=== PATIENT | female | born 1995 | race Caucasian/White ===

== ENCOUNTER → 2018-02-16 | Outpatient (CLI) | payer BC ==
[2018-02-16 15:19] LABS: POTASSIUM SERUM 4.5 MEQ/L (3.5-5.1)
== END ==
LOC: M WUC 12:26
DX: L70.0 Acne vulgaris (principal)
CPT/HCPCS: 84132

== ENCOUNTER 2020-05-30 13:22 | Emergency (ER) | payer BC ==
[~2020-05-30] VITALS: Ht 167.6 cm; Wt 74.2 kg
[2020-05-30] MEDS ORDERED: ESTA0.25 (13:28)
[2020-05-30 14:35] LABS: BASO % 0.3 % (0.0-1.0); EOS % 0.1 % (0.0-3.0); HEMATOCRIT 41.3 % (36.0-47.0); HEMOGLOBIN 12.6 g/dl (12.0-15.5); LYMPH # 1.4 10^3/uL (1.5-5.0); LYMPH % 13.3 % (24.0-44.0); MEAN CORPUSCULAR HEMOGLOBIN 23.5 pg (27.0-33.0); MEAN CORPUSCULAR HGB CONC 30.5 g/dl (32.0-36.5); MEAN CORPUSCULAR VOLUME 77.1 fl (80.0-96.0); MONO # 0.7 10^3/uL (0.0-0.8); MONO % 6.6 % (0.0-5.0); NEUTROPHILS # 8.5 10^3/uL (1.5-8.5); NEUTROPHILS % 79.5 % (36.0-66.0); PLATELET COUNT, AUTOMATED 319 10^3/uL (150-450); RED BLOOD COUNT 5.36 10^6/uL (4.00-5.40); WHITE BLOOD COUNT 10.6 10^3/uL (4.0-10.0)
[2020-05-30 14:58] LABS: ALBUMIN 3.9 GM/DL (3.2-5.2); BILIRUBIN,DIRECT 0.2 MG/DL (0.0-0.2); BILIRUBIN,TOTAL 0.6 MG/DL (0.2-1.0); TOTAL PROTEIN 8.6 GM/DL (6.4-8.2)
[2020-05-30] MEDS ORDERED: NS 1,000 ML IV ONE (15:00)
[2020-05-30] MEDS ORDERED: ONDANSETRON 4MG/2ML VIAL IV ONE (15:00)
--- NOTE | 2020-05-30 15:55 | REPVR ---
PROCEDURE INFORMATION: Exam: CT Head Without Contrast Exam date and time: 05/30/2020 3:38 PM Age: 24 years old Clinical indication: Pain; Headache; Migraine. TECHNIQUE: Imaging protocol: Computed tomography of the head without contrast. Radiation optimization: All CT scans at this facility use at least one of these dose optimization techniques: automated exposure control; mA and/or kV adjustment per patient size (includes targeted exams where dose is matched to clinical indication); or iterative reconstruction. COMPARISON: No relevant prior studies available. FINDINGS: Brain: Normal. No hemorrhage. Unremarkable white matter. No mass effect. Cerebral ventricles: No ventriculomegaly. Bones/joints: Unremarkable. No acute fracture. Paranasal sinuses: Visualized sinuses are unremarkable. No fluid levels. Mastoid air cells: Visualized mastoid air cells are well aerated. Soft tissues: Unremarkable. IMPRESSION: No acute intracranial abnormality. Electronically signed by: Curt Dominguez On 05/30/2020 15:55:14 PM
[2020-05-30 16:15] VITALS: BP 128/78
== END 2020-05-30 16:26 | disposition home or self-care (01) ==
LOC: M ED 13:22
DX: R19.7 Diarrhea, unspecified (principal); R51 Headache; R11.2 Nausea with vomiting, unspecified; Z82.49 Family history of ischemic heart disease and other diseases of the circulatory system
CPT/HCPCS: 70450; 80047; 80076; 81001; 83690; 84702; 85025; 96361; 96374; 99284; J2405

== ENCOUNTER 2021-05-27 20:33 | Emergency (ER) | payer BC, OTHER ==
[~2021-05-27] VITALS: Ht 167.6 cm; Wt 73.4 kg
[~2021-05-27 20:33] MED LIST: ESTA0.25
[2021-05-27 21:14] LABS: BASO % 0.3 % (0.0-1.0); EOS % 0.5 % (0.0-3.0); HEMATOCRIT 40.7 % (36.0-47.0); HEMOGLOBIN 12.3 g/dl (12.0-15.5); LYMPH # 1.9 10^3/uL (1.5-5.0); MEAN CORPUSCULAR HEMOGLOBIN 23.7 pg (27.0-33.0); MEAN CORPUSCULAR HGB CONC 30.2 g/dl (32.0-36.5); MEAN CORPUSCULAR VOLUME 78.3 fl (80.0-96.0); MONO # 0.5 10^3/uL (0.0-0.8); MONO % 5.8 % (2.0-8.0); NEUTROPHILS # 6.2 10^3/uL (1.5-8.5); NEUTROPHILS % 71.1 % (36.0-66.0); PLATELET COUNT, AUTOMATED 291 10^3/uL (150-450); WHITE BLOOD COUNT 8.7 10^3/uL (4.0-10.0)
[2021-05-27 21:43] LABS: HCG, SERUM QUALITATIVE NEGATIVE (NEGATIVE)
[2021-05-27 21:46] LABS: ALBUMIN 3.7 GM/DL (3.2-5.2); ALT/SGPT 26 U/L (12-78); BILIRUBIN,DIRECT 0.1 MG/DL (0.0-0.2); BILIRUBIN,TOTAL 0.5 MG/DL (0.2-1.0); BLOOD UREA NITROGEN 7 MG/DL (7-18); CARBON DIOXIDE LEVEL 28 MEQ/L (21-32); CHLORIDE LEVEL 103 MEQ/L (98-107); CREATININE FOR GFR 0.65 MG/DL (0.55-1.30); GLOMERULAR FILTRATION RATE > 60.0 (>60); GLUCOSE, FASTING 75 MG/DL (70-100); LIPASE 71 U/L (73-393); POTASSIUM SERUM 4.2 MEQ/L (3.5-5.1); SODIUM LEVEL 137 MEQ/L (136-145); TOTAL PROTEIN 8.2 GM/DL (6.4-8.2)
[2021-05-27 21:49] LABS: RSV AMPLIFICATION NEGATIVE (NEGATIVE)
[2021-05-27] MEDS ORDERED: ONDANSETRON 4MG/2ML VIAL IV ONE (21:55)
[2021-05-27] MEDS ORDERED: NS 1,000 ML IV ONE (21:55)
[2021-05-27] MEDS ORDERED: KETOROLAC 30 MG/ML 1ML VIAL IV ONE (21:55)
[2021-05-27] MEDS ORDERED: ONDANSETRON 4 MG ORAL DISINTEGRATING TAB PO ONE (23:55)
[2021-05-27] MEDS ORDERED: ONDA4TAB6 PO (23:58)
[2021-05-28 00:27] VITALS: BP 123/65
[2021-05-28] MEDS ORDERED: physical therapy AU (18:25)
[2021-05-28] MEDS ORDERED: ONDA4TAB6 PO (18:25)
== END 2021-05-28 00:28 | disposition home or self-care (01) ==
LOC: M ED 20:33
DX: R11.2 Nausea with vomiting, unspecified (principal); E86.0 Dehydration; Z79.3 Long term (current) use of hormonal contraceptives
CPT/HCPCS: 80048; 80076; 81001; 83690; 84703; 85025; 87631; 96361; 96374; 96375; 99284; J1885; J2405; Q0162

== ENCOUNTER 2021-05-28 12:42 | Emergency (ER) | payer OTHER ==
[~2021-05-28] VITALS: Ht 167.6 cm; Wt 73.0 kg
[~2021-05-28 12:42] MED LIST changes: +ONDA4TAB6 PO
[2021-05-28 12:43] VITALS: BP 116/78
[2021-05-28] MEDS ORDERED: physical therapy AU (18:25)
[2021-05-28] MEDS ORDERED: ONDA4TAB6 PO (18:25)
== END 2021-05-28 19:25 | disposition home or self-care (01) ==
LOC: M ED 12:42
DX: H81.10 Benign paroxysmal vertigo, unspecified ear (principal); R11.2 Nausea with vomiting, unspecified; Z79.3 Long term (current) use of hormonal contraceptives

== ENCOUNTER → 2023-07-05 | Outpatient (CLI) | payer OTHER ==
[~2023-07-05] MED LIST changes: +physical therapy AU
== END ==
LOC: M WUC 14:21
PROVIDERS: ATTEND Student in an Organized Health Care Education/Training Program
DX: M79.641 Pain in right hand (principal)

== ENCOUNTER → 2023-09-08 | Outpatient (CLI) | payer OTHER, BC ==
[2023-09-08 17:15] LABS: BASO % 0.3 % (0.0-1.0); EOS # 0.1 10^3/uL (0.0-0.5); EOS % 0.8 % (0.0-3.0); HEMOGLOBIN 12.2 g/dl (12.0-15.5); LYMPH # 2.3 10^3/uL (1.5-5.0); LYMPH % 29.8 % (24.0-44.0); MEAN CORPUSCULAR HEMOGLOBIN 25.3 pg (27.0-33.0); MEAN CORPUSCULAR HGB CONC 30.5 g/dl (32.0-36.5); MONO # 0.6 10^3/uL (0.0-0.8); MONO % 7.1 % (2.0-8.0); NEUTROPHILS # 4.7 10^3/uL (1.5-8.5); NEUTROPHILS % 61.5 % (36.0-66.0); PLATELET COUNT, AUTOMATED 289 10^3/uL (150-450); RED BLOOD COUNT 4.82 10^6/uL (4.00-5.40); WHITE BLOOD COUNT 7.7 10^3/uL (4.0-10.0)
[2023-09-08 19:22] LABS: FREE T4 1.55 NG/DL (0.89-1.76); THYROID STIMULATING HORMONE 1.187 uIU/ML (0.55-4.78); TOTAL IRON BINDING CAPACITY 493 UG/DL (250-425)
[2023-09-08 19:24] LABS: ALBUMIN 3.5 G/DL (3.2-5.2); ALKALINE PHOSPHATASE 82 U/L (46-116); ALT/SGPT 11 U/L (7.0-40); AST/SGOT 14 U/L (<34); BILIRUBIN,TOTAL 0.3 MG/DL (0.3-1.2); BLOOD UREA NITROGEN 9 MG/DL (9-23); CALCIUM LEVEL 8.6 MG/DL (8.5-10.1); CARBON DIOXIDE LEVEL 27 MMOL/L (20-31); CHLORIDE LEVEL 103 MMOL/L (98-107); CHOLESTEROL LEVEL 231 MG/DL (<200); CHOLESTEROL RISK RATIO 3.12 (<5); FERRITIN 2.1 NG/ML (7.3-270.7); GLOMERULAR FILTRATION RATE > 60.0 (>60); GLUCOSE, FASTING 82 MG/DL (60-100); IRON (FE) 52 UG/DL (50-170); LDL CHOLESTEROL 134.8 MG/DL (<100); PERCENT SATURATION 10.5 % (13.2-45.0); POTASSIUM SERUM 4.1 MMOL/L (3.5-5.1); SODIUM LEVEL 137 MMOL/L (136-145); TOTAL PROTEIN 7.4 G/DL (5.7-8.2); TRIGLYCERIDES LEVEL 111 MG/DL (<150)
== END ==
LOC: M WUC 11:48
PROVIDERS: ATTEND Physician Assistant
DX: R53.83 Other fatigue (principal); R44.8 Other symptoms and signs involving general sensations and perceptions; R23.3 Spontaneous ecchymoses

== ENCOUNTER → 2023-11-23 | Outpatient (CLI) | payer BC, OTHER ==
[2023-11-23 16:12] LABS: HEMOGLOBIN A1c 4.9 % (4.0-6.0)
[2023-11-23 16:29] LABS: PROLACTIN 7.69 NG/ML; THYROID STIMULATING HORMONE 1.041 uIU/ML (0.55-4.78)
[2023-11-23 16:30] LABS: FREE T4 1.18 NG/DL (0.89-1.76)
== END ==
LOC: M PLALAB 14:21
PROVIDERS: ATTEND Nurse Practitioner Family
DX: N92.6 Irregular menstruation, unspecified (principal)

== ENCOUNTER → 2023-12-01 | Outpatient (CLI) | payer OTHER, BC | LOC: M RAD 15:16 | PROVIDERS: ATTEND Nurse Practitioner Family | DX: N92.6 Irregular menstruation, unspecified (principal) ==

== ENCOUNTER → 2024-03-08 | Outpatient (CLI) | payer OTHER ==
[~2024-03-08] MED LIST changes: +ONDA-282 PO; -ONDA4TAB6 PO
[2024-03-08 14:11] LABS: BASO % 0.3 % (0.0-1.0); EOS # 0.1 10^3/uL (0.0-0.5); EOS % 1.2 % (0.0-3.0); HEMOGLOBIN 13.6 g/dl (12.0-15.5); LYMPH # 2.1 10^3/uL (1.5-5.0); LYMPH % 24.2 % (24.0-44.0); MEAN CORPUSCULAR HGB CONC 30.9 g/dl (32.0-36.5); MEAN CORPUSCULAR VOLUME 87.3 fl (80.0-96.0); MONO # 0.6 10^3/uL (0.0-0.8); MONO % 6.4 % (2.0-8.0); NEUTROPHILS % 67.4 % (36.0-66.0); PLATELET COUNT, AUTOMATED 263 10^3/uL (150-450); RED BLOOD COUNT 5.04 10^6/uL (4.00-5.40); WHITE BLOOD COUNT 8.9 10^3/uL (4.0-10.0)
[2024-03-08 14:42] LABS: FERRITIN 3.9 NG/ML (7.3-270.7)
[2024-03-08 14:43] LABS: PERCENT SATURATION 7.2 % (13.2-45.0)
== END ==
LOC: M PLALAB 10:24
PROVIDERS: ATTEND Physician Assistant
DX: D50.9 Iron deficiency anemia, unspecified (principal)

== ENCOUNTER 2024-04-06 13:57 | Outpatient (CLI) | payer OTHER ==
[~2024-04-06] VITALS: Ht 167.6 cm; Wt 81.8 kg
[~2024-04-06 13:57] MED LIST changes: +ALBUTEROL SULFATE 2.5MG/0.5ML INH NEB SOLN INH PRN; +EPINEPHrine INJ 1 MG/ML 1ML AMP IM PRN; +diphenhydrAMINE 50MG/ML VIAL IV PRN; +methylPREDNISolone 125MG 2ML VIAL IV PRN
[2024-04-06] MEDS ORDERED: NS 1,000 ML IV SCH (14:00)
[2024-04-06 14:05] VITALS: BP 134/69; O2SAT 98
[2024-04-06] MEDS: FERRIC CARBOXYMALTOSE INJ 750 MG in NS 250 ML (>50kg) IV ONE (14:40)
[2024-04-06 16:50] VITALS: BP 127/88; O2SAT 98
== END 2024-04-06 16:50 ==
LOC: M INFU 13:57
PROVIDERS: ATTEND Physician Assistant
DX: D50.9 Iron deficiency anemia, unspecified (principal)
CPT/HCPCS: 96365; J1439

== ENCOUNTER 2024-04-13 14:20 | Outpatient (CLI) | payer OTHER ==
[~2024-04-13] VITALS: Ht 167.6 cm; Wt 81.8 kg
[~2024-04-13 14:20] MED LIST changes: +NS 1,000 ML IV SCH
[2024-04-13 14:37] VITALS: BP 120/69; O2SAT 100
[2024-04-13] MEDS: FERRIC CARBOXYMALTOSE INJ 750 MG in NS 250 ML (>50kg) IV ONE (14:39)
[2024-04-13 15:53] VITALS: BP 112/78; O2SAT 99
== END 2024-04-13 15:56 ==
LOC: M INFU 14:20
PROVIDERS: ATTEND Physician Assistant
DX: D50.9 Iron deficiency anemia, unspecified (principal)
CPT/HCPCS: 96365; J1439

== ENCOUNTER → 2024-10-17 | Outpatient (CLI) | payer OTHER ==
[~2024-10-17] MED LIST changes: -ALBUTEROL SULFATE 2.5MG/0.5ML INH NEB SOLN INH PRN; -EPINEPHrine INJ 1 MG/ML 1ML AMP IM PRN; -NS 1,000 ML IV SCH; -diphenhydrAMINE 50MG/ML VIAL IV PRN; -methylPREDNISolone 125MG 2ML VIAL IV PRN
[2024-10-17 18:13] LABS: HEMATOCRIT 39.7 % (36.0-47.0); HEMOGLOBIN 13.3 g/dl (12.0-15.5); MEAN CORPUSCULAR HEMOGLOBIN 29.5 pg (27.0-33.0); MEAN CORPUSCULAR HGB CONC 33.5 g/dl (32.0-36.5); PLATELET COUNT, AUTOMATED 250 10^3/uL (150-450); RED BLOOD COUNT 4.51 10^6/uL (4.00-5.40); WHITE BLOOD COUNT 10.2 10^3/uL (4.0-10.0)
[2024-10-17 18:45] LABS: PERCENT SATURATION 23.7 % (13.2-45.0)
[2024-10-17 18:48] LABS: FERRITIN 228.1 NG/ML (7.3-270.7)
== END ==
LOC: M PLALAB 16:13
PROVIDERS: ATTEND Nurse Practitioner Family
DX: D50.9 Iron deficiency anemia, unspecified (principal)

== ENCOUNTER 2024-10-22 05:54 | Emergency (ER) | payer OTHER ==
[~2024-10-22] VITALS: Ht 167.6 cm; Wt 78.8 kg
[2024-10-22] MEDS ORDERED: MULTTAB20 PO (06:00)
[2024-10-22 07:45] LABS: BASO % 0.1 % (0.0-1.0); EOS % 0.1 % (0.0-3.0); HEMATOCRIT 45.5 % (36.0-47.0); HEMOGLOBIN 15.4 g/dl (12.0-15.5); LYMPH # 1.3 10^3/uL (1.5-5.0); LYMPH % 11.3 % (24.0-44.0); MEAN CORPUSCULAR HEMOGLOBIN 29.6 pg (27.0-33.0); MEAN CORPUSCULAR HGB CONC 33.8 g/dl (32.0-36.5); MEAN CORPUSCULAR VOLUME 87.5 fl (80.0-96.0); MONO # 0.5 10^3/uL (0.0-0.8); MONO % 4.3 % (2.0-8.0); NEUTROPHILS # 9.6 10^3/uL (1.5-8.5); NEUTROPHILS % 83.8 % (36.0-66.0); PLATELET COUNT, AUTOMATED 288 10^3/uL (150-450); WHITE BLOOD COUNT 11.5 10^3/uL (4.0-10.0)
[2024-10-22 07:50] LABS: KETONE, URINE AUTO RFX 2+ mg/dL (NEGATIVE); MUCUS, URINE RFX LARGE (NEGATIVE); NITRITE, URINE AUTO RFX NEGATIVE (NEGATIVE); RBC, URINE AUTO RFX 2 /HPF (0-3); SQUAM EPITHELIAL CELL UR AURFX 2 /HPF (0-6)
[2024-10-22 08:10] LABS: LIPASE 39 U/L (12-53)
[2024-10-22 08:11] LABS: AMYLASE 110 U/L (30-118)
[2024-10-22 08:12] LABS: ALKALINE PHOSPHATASE 111 U/L (35-104); ALT/SGPT 92 U/L (7.0-40); AST/SGOT 36 U/L (<34); BILIRUBIN,DIRECT 0.3 MG/DL (<0.4); BILIRUBIN,TOTAL 0.7 MG/DL (0.3-1.2); BLOOD UREA NITROGEN 7 MG/DL (9-23); CALCIUM LEVEL 10.5 MG/DL (8.5-10.1); CARBON DIOXIDE LEVEL 22 MMOL/L (20-31); CHLORIDE LEVEL 104 MMOL/L (98-107); CREATININE FOR GFR 0.47 MG/DL (0.55-1.30); GLOMERULAR FILTRATION RATE > 60.0 (>60); GLUCOSE, FASTING 80 MG/DL (60-100); POTASSIUM SERUM 4.1 MMOL/L (3.5-5.1); SODIUM LEVEL 139 MMOL/L (136-145); TOTAL PROTEIN 8.4 G/DL (5.7-8.2)
[2024-10-22 08:20] LABS: LEUKOCYTE ESTERASE UR AUTO RFX 1+ (NEGATIVE); WBC, URINE AUTO RFX 11 /HPF (0-3)
[2024-10-22] MEDS: NS (Normal Saline) 0.9% 1,000 ML IV ONE (09:30)
[2024-10-22 09:45] LABS: MAGNESIUM LEVEL 2.1 MG/DL (1.8-2.4)
[2024-10-22] MEDS: ONDANSETRON 4MG 2ML VIAL IV ONE (09:47)
[2024-10-22 10:14] LABS: HEPATITIS B SURFACE ANTIGEN NEGATIVE (NEGATIVE)
[2024-10-22 10:35] LABS: HEPATITIS B CORE ANTIBODY IGM NEGATIVE (NEGATIVE)
[2024-10-22] MEDS ORDERED: NS (Normal Saline) 0.9% 1,000 ML IV ONE (10:55)
[2024-10-22] MEDS ORDERED: PROM12.56 PO (12:05)
[2024-10-22] MEDS ORDERED: CEPH500C PO (12:05)
[2024-10-22 12:46] VITALS: BP 130/75; TEMP 97.7; O2SAT 100
== END 2024-10-22 12:48 | disposition home or self-care (01) ==
LOC: M ED 05:54
DX: O21.1 Hyperemesis gravidarum with metabolic disturbance (principal); O23.41 Unspecified infection of urinary tract in pregnancy, first trimester; O30.091 Twin pregnancy, unable to determine number of placenta and number of amniotic sacs, first trimester; Z3A.08 8 weeks gestation of pregnancy; Z79.2 Long term (current) use of antibiotics; Z79.810 Long term (current) use of selective estrogen receptor modulators (SERMs); Z79.899 Other long term (current) drug therapy
CPT/HCPCS: 76801; 76802; 80048; 80074; 80076; 81001; 82150; 83605; 83690; 83735; 84702; 85025; 86850; 86900; 86901; 87086; 93976; 96361; 96374; 99284; J2405

== ENCOUNTER → 2024-10-25 | Outpatient (CLI) | payer OTHER ==
[~2024-10-25] MED LIST changes: +CEPH500C PO; +MULTTAB20 PO; +PROM12.56 PO
[2024-10-25 12:47] LABS: HEMATOCRIT 45.1 % (36.0-47.0); HEMOGLOBIN 15.2 g/dl (12.0-15.5); MEAN CORPUSCULAR HEMOGLOBIN 29.1 pg (27.0-33.0); MEAN CORPUSCULAR HGB CONC 33.7 g/dl (32.0-36.5); MEAN CORPUSCULAR VOLUME 86.4 fl (80.0-96.0); PLATELET COUNT, AUTOMATED 289 10^3/uL (150-450); RED BLOOD COUNT 5.22 10^6/uL (4.00-5.40); WHITE BLOOD COUNT 12.3 10^3/uL (4.0-10.0)
[2024-10-25 13:02] LABS: URIC ACID 7.1 MG/DL (3.1-7.8)
[2024-10-25 13:04] LABS: LDH LACTATE DEHYDROGENASE 152 U/L (120-246)
[2024-10-25 13:05] LABS: ALT/SGPT 83 U/L (7.0-40); AST/SGOT 27 U/L (<34); BILIRUBIN,TOTAL 0.6 MG/DL (0.3-1.2); CREATININE FOR GFR 0.52 MG/DL (0.55-1.30); GLOMERULAR FILTRATION RATE > 60.0 (>60)
[2024-10-25 13:35] LABS: HIV 1&2 SCREEN NEGATIVE (NEGATIVE)
[2024-10-25 13:47] LABS: Trichomonas vaginalis (AMP) NOT DETECTED (NEGATIVE)
[2024-10-25 13:52] LABS: CREATININE,RANDOM URINE 252.8 MG/DL
[2024-10-25 14:11] LABS: GC DNA AMPLIFICATION NEGATIVE (NEGATIVE)
== END ==
LOC: M PLALAB 10:18
PROVIDERS: ATTEND Nurse Practitioner Family
DX: O30.041 Twin pregnancy, dichorionic/diamniotic, first trimester (principal)

== ENCOUNTER 2024-10-26 03:25 | Emergency (ER) | payer OTHER ==
[~2024-10-26] VITALS: Ht 167.6 cm; Wt 77.1 kg
[2024-10-26 05:54] LABS: BASO % 0.1 % (0.0-1.0); EOS % 0.1 % (0.0-3.0); HEMOGLOBIN 15.4 g/dl (12.0-15.5); LYMPH # 0.7 10^3/uL (1.5-5.0); MEAN CORPUSCULAR HEMOGLOBIN 29.2 pg (27.0-33.0); MEAN CORPUSCULAR HGB CONC 34.2 g/dl (32.0-36.5); MEAN CORPUSCULAR VOLUME 85.2 fl (80.0-96.0); MONO # 0.2 10^3/uL (0.0-0.8); MONO % 1.6 % (2.0-8.0); NEUTROPHILS % 92.7 % (36.0-66.0); PLATELET COUNT, AUTOMATED 303 10^3/uL (150-450); RED BLOOD COUNT 5.28 10^6/uL (4.00-5.40); WHITE BLOOD COUNT 14.1 10^3/uL (4.0-10.0)
[2024-10-26] MEDS: NS (Normal Saline) 0.9% 1,000 ML IV STA (06:00)
[2024-10-26] MEDS: PROMETHAZINE 25MG/ML 1ML VIAL IV ONE (06:25)
[2024-10-26 06:33] LABS: ALBUMIN 4.1 G/DL (3.2-5.2); ALKALINE PHOSPHATASE 132 U/L (35-104); ALT/SGPT 84 U/L (7.0-40); AST/SGOT 39 U/L (<34); BILIRUBIN,DIRECT 0.3 MG/DL (<0.4); BILIRUBIN,TOTAL 0.8 MG/DL (0.3-1.2); BLOOD UREA NITROGEN 6 MG/DL (9-23); CALCIUM LEVEL 10.9 MG/DL (8.5-10.1); CARBON DIOXIDE LEVEL 16 MMOL/L (20-31); CHLORIDE LEVEL 104 MMOL/L (98-107); CREATININE FOR GFR 0.47 MG/DL (0.55-1.30); GLOMERULAR FILTRATION RATE > 60.0 (>60); GLUCOSE, FASTING 101 MG/DL (60-100); LIPASE 45 U/L (12-53); POTASSIUM SERUM 4.9 MMOL/L (3.5-5.1); SODIUM LEVEL 139 MMOL/L (136-145)
[2024-10-26] MEDS ORDERED: LABETALOL 100MG/20ML VIAL IV ONE (06:40)
[2024-10-26] MEDS: cefTRIAXone SOD 1 GM in DEXTROSE 5% (D5W) ADV/MINI-BAG 50 ML IV ONE (07:52)
[2024-10-26] MEDS: ONDANSETRON 4MG 2ML VIAL IV ONE (07:52)
[2024-10-26 08:04] LABS: PROTEIN, URINE MANUAL REFLEX TRACE mg/dL (NEGATIVE)
[2024-10-26 08:05] LABS: KETONE, URINE MANUAL REFLEX 3+ mg/dL (NEGATIVE); NITRITE, URINE MANUAL RFX NEGATIVE (NEGATIVE); UROBILINOGEN, UA MANUAL REFLEX NORMAL (NORMAL)
[2024-10-26 08:15] LABS: MICROSCOPIC EXAM RFX PERFORMED; RBC, URINE MAN REFLEX 0-1 /hpf (0-3); SQUAMOUS EPITHELIAL URINE RFX MOD AMOUNT /hpf (SMALL AMT)
[2024-10-26] MEDS: METOCLOPRAMIDE INJ 10MG/2ML VIAL IV ONE (08:53)
[2024-10-26] MEDS ORDERED: ONDA-282 PO (10:13)
[2024-10-26 10:14] VITALS: BP 128/85; TEMP 98; O2SAT 98
== END 2024-10-26 10:22 | disposition home or self-care (01) ==
LOC: M ED 03:25
DX: O21.1 Hyperemesis gravidarum with metabolic disturbance (principal); O99.280 Endocrine, nutritional and metabolic diseases complicating pregnancy, unspecified trimester; Z3A.00 Weeks of gestation of pregnancy not specified; Z79.810 Long term (current) use of selective estrogen receptor modulators (SERMs); Z79.899 Other long term (current) drug therapy
CPT/HCPCS: 80048; 80076; 81000; 81015; 83690; 85025; 87086; 96361; 96365; 96375; 99284; J0696; J2405; J2550; J2765

== ENCOUNTER → 2024-11-13 | Outpatient (CLI) | payer OTHER | LOC: M PLALAB 16:13 | PROVIDERS: ATTEND Nurse Practitioner Family | DX: O30.041 Twin pregnancy, dichorionic/diamniotic, first trimester (principal) ==

== ENCOUNTER → 2025-01-02 | Outpatient (CLI) | payer OTHER | LOC: M RAD 15:56 | PROVIDERS: ATTEND Obstetrics & Gynecology | DX: O31.10X0 Continuing pregnancy after spontaneous abortion of one fetus or more, unspecified trimester, not applicable or unspecified (principal) ==

== ENCOUNTER → 2025-05-04 | Outpatient (REF) | payer OTHER | LOC: M SFHCWAGY 10:04 | PROVIDERS: ATTEND Obstetrics & Gynecology | DX: Z36.85 Encounter for antenatal screening for Streptococcus B (principal); Z3A.36 36 weeks gestation of pregnancy ==

== ENCOUNTER 2025-06-01 08:27 | Inpatient (IN) | payer OTHER ==
[2025-06-01] VITALS (58 sets, daily range): BP systolic 52–139; BP diastolic 31–84
[~2025-06-01] VITALS: Ht 167.6 cm; Wt 82.8 kg
[2025-06-01] MEDS ORDERED: CARBOPROST TROMETHAMINE 250 MCG/ML AMP IM PRN (09:55)
[2025-06-01] MEDS ORDERED: LIDOCAINE 1% MDV 20 ML VIAL INFIL PRN (09:55)
[2025-06-01] MEDS ORDERED: METHYLERGONOVINE MALEATE 0.2 MG/ML 1 ML VIAL IM PRN (09:55)
[2025-06-01] MEDS ORDERED: OMEP10CASR PO (10:15)
[2025-06-01] MEDS ORDERED: HOME MED LIST COMPLETE! XX SCH (10:15)
[2025-06-01 10:23] LABS: PLATELET COUNT, AUTOMATED 176 10^3/uL (150-450)
[2025-06-01 11:20] LABS: HIV 1&2 SCREEN NEGATIVE (NEGATIVE)
[2025-06-01 11:27] LABS: HEPATITIS C VIRUS ABY INDEX < 0.02 INDEX (<0.8)
[2025-06-01] MEDS: LACTATED RINGER'S 1000 ML IV STA (12:23)
[2025-06-01] MEDS: ONDANSETRON 4MG 2ML VIAL IV SCH (12:50)
[2025-06-01] MEDS ORDERED: diphenhydrAMINE 50 MG/ML VIAL IV PRN (13:10)
[2025-06-01] MEDS ORDERED: EPIDURAL/PCA KEYS XX PRN ×2 (13:10→15:00)
[2025-06-01] MEDS ORDERED: ONDANSETRON 4MG 2ML VIAL IV PRN (13:10)
[2025-06-01] MEDS ORDERED: NALOXONE INJ 0.4 MG/1 ML VIAL IV PRN (13:10)
[2025-06-01] MEDS ORDERED: FENTANYL 2 MCG/ML ROPIVACAINE 0.2% IN 0.9% NACL 100 ML IVBAG As Ordered ONE (13:13)
[2025-06-01] MEDS: FENTANYL/ROPIVACAINE/NACL BAG 100 ML EPIDURAL SCH (13:49)
[2025-06-01] MEDS: LR 500 ML IV PRN (14:45)
[2025-06-01] MEDS ORDERED: LR 500 ML IV PRN (15:00)
[2025-06-01] MEDS ORDERED: FENTANYL/ROPIVACAINE/NACL BAG 100 ML EPIDURAL SCH (15:00)
[2025-06-01] MEDS: OXYTOCIN DRIP 30 UNITS in IV 1 EA IV PRN (21:21)
[2025-06-01] MEDS: TRANEXAMIC ACID INJection 1,000 MG in NS 100 ML IV PRN (21:24)
[2025-06-01] MEDS ORDERED: CALCIUM CARBONATE 500 MG CHEW U/D PO PRN (23:25)
[2025-06-01] MEDS ORDERED: ANUSOL HC CREAM 30 GM TOP PRN (23:25)
[2025-06-01] MEDS ORDERED: DOCUSATE SODIUM 100 MG CAPSULE PO PRN (23:25)
[2025-06-01] MEDS ORDERED: IBUPROFEN 600 MG TAB PO PRN (23:25)
[2025-06-01] MEDS ORDERED: RHOGAM 300MCG (1500IU) INJ IM SCH (23:25)
[2025-06-01] MEDS ORDERED: MOM 30 ML SUSPENSION UDC PO PRN (23:25)
[2025-06-01] MEDS ORDERED: ACETAMINOPHEN 325 MG TAB PO PRN (23:25)
[2025-06-01] MEDS ORDERED: METHYLERGONOVINE MALEATE 0.2 MG TAB PO PRN (23:25)
[2025-06-01 23:33] LABS: PLATELET COUNT, AUTOMATED 177 10^3/uL (150-450)
[2025-06-01 23:38] LABS: INR 1.03
[2025-06-02] VITALS (29 sets, daily range): BP systolic 80–118; BP diastolic 49–67; TEMP 97.4–99.3; O2SAT 96–98
[2025-06-02] MEDS: ACETAMINOPHEN 500 MG TAB PO PRN (01:04)
[2025-06-02] MEDS: ONDANSETRON 4MG 2ML VIAL IV PRN (02:51)
[2025-06-02] MEDS: PERCOCET 5MG/325MG TAB PO PRN (03:06)
[2025-06-02 07:26] LABS: PLATELET COUNT, AUTOMATED 154 10^3/uL (150-450)
[2025-06-02] MEDS: FERROUS SULFATE 325 MG TAB PO SCH (09:00)
[2025-06-02] MEDS: PRENATAL VITAMINS CHEWABLE TABLET PO SCH (09:14)
[2025-06-02] MEDS: IBUPROFEN 800 MG TAB PO PRN (15:38)
[2025-06-03 05:05] VITALS: BP 105/56; O2SAT 98
[2025-06-03 06:10] VITALS: BP 106/58; O2SAT 99
[2025-06-03] MEDS: DIBUCAINE 1% OINTMENT 30 GM TOP PRN (09:09)
[2025-06-03] MEDS: MEASLES,MUMPS,RUBELLA VACCINE INJ (MMR-II) SC.IMMUN ONE (09:10)
== END 2025-06-03 14:43 | disposition home or self-care (01) | DRG 806 ==
LOC: M LDO 08:27 → M LDI 09:49 → M OBS 06-02 10:10
PROVIDERS: ADMIT Advanced Practice Midwife; ATTEND Advanced Practice Midwife
PROC: 10E0XZZ Delivery of Products of Conception, External Approach (ICD-10-PCS; principal; 2025-06-01)
PROC: 0KQM0ZZ Repair Perineum Muscle, Open Approach (ICD-10-PCS; 2025-06-01)
PROC: 10907ZC Drainage of Amniotic Fluid, Therapeutic from Products of Conception, Via Natural or Artificial Opening (ICD-10-PCS; 2025-06-01)
PROC: 0UQMXZZ Repair Vulva, External Approach (ICD-10-PCS; 2025-06-01)
PROC: 30233N1 Transfusion of Nonautologous Red Blood Cells into Peripheral Vein, Percutaneous Approach (ICD-10-PCS; 2025-06-01)
DX: O48.0 Post-term pregnancy (principal); Z37.0 Single live birth; O72.1 Other immediate postpartum hemorrhage; Z3A.40 40 weeks gestation of pregnancy; O32.6XX0 Maternal care for compound presentation, not applicable or unspecified; O70.1 Second degree perineal laceration during delivery; O71.82 Other specified trauma to perineum and vulva